=== PATIENT | male | born 1950 | race Caucasian/White ===

== ENCOUNTER 2024-08-13 04:49 | Outpatient (CLI) | payer MEDICARE, SELFPAY ==
[2024-08-13 12:26] LABS: Abs Immature Grans 0.02 10^3/uL (0.0-0.06); Absolute Basophil Count 0.05 10^3/uL (0.0-0.2); Absolute Eosinophil Count 0.11 10^3/uL (0.0-0.7); Absolute Lymphocyte Count 1.19 10^3/uL (1.2-3.4); Absolute Monocyte Count 0.59 10^3/uL (0.1-0.8); Absolute Neutrophil Count 3.87 10^3/uL (1.2-6.7); Basophils % 0.9 %; Eosinophils % 1.9 %; HCT 35.5 % (40.0-50.0); Immature Grans % 0.3 %; Lymphocytes % 20.4 %; MCH 34.9 pg (27.0-33.0); MCHC 33.8 % (32.0-36.0); MCV 103 fL (80-95); MPV 8.8 fL (8.0-11.0); Monocytes % 10.1 %; Neutrophils % 66.4 %; Platelet Count 186 10^3/uL (130-400); RBC 3.44 10^6/uL (4.36-5.78); RDW-SD 49.3 fL; WBC 5.83 10^3/uL (4.4-10.8)
[2024-08-13 12:53] LABS: ALT 42 U/L (16-63); AST 29 U/L (15-37); Albumin 3.6 g/dL (3.4-5.0); Alkaline Phosphatase 72 U/L (46-116); Anion Gap 6.5 mmol/L (3-11); BUN 22 mg/dL (7-18); CO2 25.5 mmol/L (21.0-32.0); CREATININE 1.7 mg/dL (0.70-1.30); Calcium 9.5 mg/dL (8.5-10.1); Chloride 110 mmol/L (98-107); Estimated GFR 42.04 (mL/min/1.73m2); Glucose 138 mg/dL (74-106); Potassium 4.2 mmol/L (3.5-5.1); Sodium 142 mmol/L (136-145); Total Protein 7.5 g/dL (6.4-8.2)
[2024-08-14 10:13] LABS: IgA 243 mg/dL (85-499); IgG 952 mg/dL (610-1616); IgM 83 mg/dL (35-242); Kappa Free Light Chain 2.19 mg/dL (0.33-1.94); Lambda Free Light Chain 1.99 mg/dL (0.57-2.63)
[2024-08-14 12:55] LABS: Albumin 57.5 % (55.8-66.1)
== END 2024-08-13 04:50 | disposition home or self-care (01) ==
LOC: LBO 04:49
PROVIDERS: Urology; Visit Provider Nurse Practitioner Adult Health
DX: D64.9 Anemia, unspecified (principal); N20.1 Calculus of ureter; R76.8 Other specified abnormal immunological findings in serum
CPT/HCPCS: 36415; 80053; 82784; 83883; 84154; 84165; 85025